=== PATIENT | male | born 1995 | race Caucasian/White ===

== ENCOUNTER → 2017-03-02 | Outpatient (CLI) | payer BC ==
[~2017-03-02] MED LIST: ACETAMINOPHEN W1 TA6 PO; NO HOME MEDICATIONS; NORCO 325 MG-51 TAB PO
== END ==
LOC: BHSO 08:50
DX: F41.1 Generalized anxiety disorder (principal)
CPT/HCPCS: 90791-AI

== ENCOUNTER → 2017-03-17 | Outpatient (CLI) | payer BC | LOC: BHSO 09:04 | DX: F41.1 Generalized anxiety disorder (principal) ==

== ENCOUNTER → 2017-03-30 | Outpatient (CLI) | payer BC | LOC: BHSO 08:58 | DX: F41.1 Generalized anxiety disorder (principal) ==

== ENCOUNTER → 2017-04-08 | Outpatient (CLI) | payer BC | LOC: BHSO 14:21 | DX: F41.1 Generalized anxiety disorder (principal) ==

== ENCOUNTER → 2017-04-28 | Outpatient (CLI) | payer BC | LOC: BHSO 08:59 | DX: F41.1 Generalized anxiety disorder (principal) ==

== ENCOUNTER → 2017-09-20 | Outpatient (CLI) | payer BC | LOC: BHSO 14:14 | DX: F41.1 Generalized anxiety disorder (principal) ==

== ENCOUNTER → 2017-10-04 | Outpatient (CLI) | payer BC | LOC: BHSO 13:27 | DX: F41.1 Generalized anxiety disorder (principal) ==

== ENCOUNTER → 2017-10-05 | Outpatient (CLI) | payer BC | LOC: BHSO 09:00 | DX: F41.1 Generalized anxiety disorder (principal) ==

== ENCOUNTER → 2017-10-14 | Outpatient (CLI) | payer BC | LOC: BHSO 08:39 | DX: F41.1 Generalized anxiety disorder (principal) ==

== ENCOUNTER → 2017-10-27 | Outpatient (CLI) | payer BC | LOC: BHSO 14:56 | DX: F41.1 Generalized anxiety disorder (principal) | CPT/HCPCS: G0463 ==

== ENCOUNTER → 2018-08-01 | Outpatient (CLI) | payer BC | LOC: COL.RAD 07:09 | DX: R42 Dizziness and giddiness (principal) ==